=== PATIENT | female | born 1990 | race Caucasian/White ===

== ENCOUNTER 2016-11-22 14:03 | Emergency (ER) | payer OTHER ==
[~2016-11-22] VITALS: Ht 172.7 cm; Wt 147.4 kg
[2016-11-22] MEDS ORDERED: TYLE500T78 PO (14:18)
[2016-11-22] MEDS ORDERED: prenatal vitamin (14:18)
[2016-11-22] MEDS ORDERED: NS 1,000 ML IV ONE (14:30)
[2016-11-22] MEDS ORDERED: PROMETHAZINE INJ 25 MG/ML VIAL (J2550) IV ONE (14:30)
[2016-11-22 15:14] LABS: BASO % 0.3 % (0.0-1.0); EOS % 0.3 % (0.0-3.0); LARGE UNSTAINED CELL % 0.4 % (0.0-4.0); LYMPH # 0.3 K/mm3 (1.5-6.5); LYMPH % 2.8 % (24.0-44.0); MEAN CORPUSCULAR HEMOGLOBIN 26.2 pg (27.0-33.0); MEAN CORPUSCULAR HGB CONC 33.6 g/dl (32.0-36.5); MEAN CORPUSCULAR VOLUME 78.1 fl (80.0-96.0); MONO # 0.2 K/mm3 (0.0-0.8); NEUTROPHILS % 94.2 % (36.0-66.0); PLATELET COUNT, AUTOMATED 252 k/mm3 (150-450); WHITE BLOOD COUNT 9.5 K/mm3 (4.0-10.0)
[2016-11-22 15:44] LABS: ANION GAP 11 MEQ/L (8-16); BLOOD UREA NITROGEN 11 MG/DL (7-18); CALCIUM LEVEL 8.8 MG/DL (8.5-10.1); CARBON DIOXIDE LEVEL 23 MEQ/L (21-32); CHLORIDE LEVEL 106 MEQ/L (98-107); CREATININE FOR GFR 0.64 MG/DL (0.55-1.02); GLOMERULAR FILTRATION RATE > 60.0 (>60); GLUCOSE, FASTING 104 MG/DL (70-105); HCG, SERUM QUANTITATIVE 22613 MIU/ML; POTASSIUM SERUM 3.7 MEQ/L (3.5-5.1); SODIUM LEVEL 140 MEQ/L (136-145)
[2016-11-22] MEDS ORDERED: NS 500 ML IV ONE (17:00)
[2016-11-22] MEDS ORDERED: PROM50TA2 PO (17:37)
[2016-11-22 17:40] VITALS: BP 138/70
== END 2016-11-22 18:03 | disposition home or self-care (01) ==
LOC: M ED 15:12
DX: O99.89 Other specified diseases and conditions complicating pregnancy, childbirth and the puerperium (principal); A09 Infectious gastroenteritis and colitis, unspecified; E86.0 Dehydration; Z20.9 Contact with and (suspected) exposure to unspecified communicable disease; Z87.891 Personal history of nicotine dependence; Z79.899 Other long term (current) drug therapy; Z91.018 Allergy to other foods; Z3A.00 Weeks of gestation of pregnancy not specified

== ENCOUNTER 2017-02-22 21:30 | Emergency (ER) | payer OTHER ==
[~2017-02-22] VITALS: Ht 170.2 cm; Wt 142.0 kg
[~2017-02-22 21:30] MED LIST: PROM50TA2 PO; TYLE500T78 PO; prenatal vitamin
[2017-02-22] MEDS ORDERED: ZICAGEL2 (21:37)
[2017-02-22] MEDS ORDERED: HYDR1CR EXT (22:42)
[2017-02-22 22:44] VITALS: BP 132/68
== END 2017-02-22 22:45 | disposition home or self-care (01) ==
LOC: M ED 21:49
DX: L50.9 Urticaria, unspecified (principal); Z79.899 Other long term (current) drug therapy; Z91.018 Allergy to other foods; Z3A.00 Weeks of gestation of pregnancy not specified

== ENCOUNTER 2017-07-04 07:04 | Inpatient (IN) | payer OTHER ==
--- NOTE | 2017-06-29 03:43 | HPE ---
DATE OF ADMISSION: 07/04/2017 This lady is a 25-year-old 3, para 3 who is booked for an elective repeat section, bilateral tubal ligation on 07/04/2017. Her past history is in 2010 at 37 weeks spontaneous vaginal delivery twins, vertex, vertex, male, female, 5 pounds 14 ounces, 6 pounds, 2 ounces. 2015 at 42 weeks section for distress, female weighing 7 pounds, unknown ounces, intolerant of labor, had a knot in the cord after induction of labor at 42 weeks. The rest of the history is unremarkable. She has risk factors of having a body mass index (BMI) of 50. She had a previous section and has had an uneventful antepartum course. Her lab values show that she is O negative, HIV negative, hepatitis negative, RPR negative, rubella immune. Varicella immune. Urine had mixed tee. Gonorrhea and chlamydia are negative. 1-hour glucose was 119. Group B Streptococcus (GBS) status is unknown at the present time. She has had a total weight gain of 16 pounds. On examination today, symphysis fundus height is 40, vertex presenting. heart is 144 beats per minute. No contractions are noted. She is normocephalic, atraumatic. Neck full range of motion. Pupils equal and reactive to light. Chest is clear bilaterally to bases. No wheezes or rhonchi. Distal pulses are symmetric. Abdomen is soft. Incisional scar is noted. The patient is presently taking care of the incisional site prepping for her repeat section. She has no rashes, lesions or pruritus. No arthralgia or myalgia. No complaints of cough, wheezes, shortness of breath or dyspnea on exertion. She has allergy to coconut. She has no chest pain, not bruising, not bleeding. Neurologically complete. No incontinency, urgency or frequency. No nausea, vomiting, diarrhea or constipation. No endocrine issues. No diabetic issues. No abnormal Pap smears. Past medical history is unremarkable. Past surgical history is previous section. Family history is noncontributory. She does not smoke, drink, abuse drugs. She is . No domestic violence. Her blood pressure today was 128/67, respirations are 20. She weighs 317 pounds. We discussed repeat section and bilateral tubal ligation by Dawnaie clip. We discussed the risks and benefits of section including hemorrhage, infection, perforation, , reoperation, remote possibility of blood transfusion, remote possibility of hysterectomy, remote possibility of laceration and remote possibility of intensive care unit (NICU) admission for the fetus. We also discussed the tubal ligation, the risk factor of failure rate of less than 1% which we have an intrauterine or an ectopic and post tubal ligation syndrome. After expressing understanding of all the risks and benefits, she signed and witnessed the consent form. She has had her preoperative assessment and is booked for 07/04/2017. After answering all questions, the patient left for evaluation of her preop on 07/04/2017.
[~2017-07-04] VITALS: Ht 170.2 cm; Wt 144.0 kg
[2017-07-04] VITALS (7 sets, daily range): BP systolic 115–134; BP diastolic 55–71
[~2017-07-04 07:04] MED LIST changes: +HYDR1CRE2 EXT; +PRENTAB9 PO; -PROM50TA2 PO; +PROM50TA4 PO; +ZICAGEL2
[2017-07-04] MEDS ORDERED: ACETAMINOPHEN 650 MG SUPP PR ONE (08:00)
[2017-07-04] MEDS ORDERED: FAMO20TA PO (08:00)
[2017-07-04] MEDS ORDERED: LR 1,000 ML IV ONE (08:00)
[2017-07-04] MEDS ORDERED: AZITHROMYCIN INJ 500 MG, VIAL MATE ADAPTER 1 EACH in D5W 250 ML IV ONE (08:00)
[2017-07-04] MEDS ORDERED: BUPIVACAINE HCL 0.25% 10 ML VIAL SC ONE (08:00)
[2017-07-04 08:05] LABS: MEAN CORPUSCULAR HEMOGLOBIN 26.3 pg (27.0-33.0); MEAN CORPUSCULAR VOLUME 79.5 fl (80.0-96.0); PLATELET COUNT, AUTOMATED 176 10^3/uL (150-450); WHITE BLOOD COUNT 8.1 10^3/uL (4.0-10.0)
[2017-07-04] MEDS: PRENATAL VITAMINS CHEWABLE TABLET PO SCH (09:00)
[2017-07-04] MEDS ORDERED: LR 1,000 ML IV SCH ×2 (09:00→13:30)
[2017-07-04] MEDS ORDERED: BICITRA 30ML SOLN UDC PO ONE (09:15)
[2017-07-04] MEDS ORDERED: METOCLOPRAMIDE INJ 10MG/2ML VIAL (J2765) IV PRN ×2 (11:35→13:30)
[2017-07-04] MEDS ORDERED: NALOXONE INJ 0.4 MG/1 ML VIAL (J2310) IV PRN ×2 (11:35)
[2017-07-04] MEDS ORDERED: ONDANSETRON 4MG/2ML VIAL (J2405) IV PRN ×2 (11:35→13:30)
[2017-07-04] MEDS ORDERED: KETOROLAC 60 MG/2 ML VIAL (J1885) As Ordered ONE (12:05)
[2017-07-04] MEDS ORDERED: ONDANSETRON 4MG/2ML VIAL (J2405) As Ordered ONE (12:05)
[2017-07-04] MEDS ORDERED: MORPHINE PRES-FREE INJ 10 MG/10 ML VIAL (J2274) As Ordered ONE (12:05)
[2017-07-04] MEDS ORDERED: OXYTOCIN INJ 10 UNITS/ML VIAL (J2590) As Ordered ONE (12:05)
[2017-07-04] MEDS ORDERED: PHENYLephrine HCL 500 MCG/5 ML (100MCG/ML) SYRINGE (J2370) As Ordered ONE (12:07)
[2017-07-04 12:15] LABS: CORD GAS ABE A -3.7; CORD GAS ABE V -1.4; CORD GAS HCO3 A 23.2 MEQ/L; CORD GAS HCO3 V 23.1 MEQ/L; CORD GAS O2 SAT A 22.4 %; CORD GAS O2 SAT V 66.6 %; CORD GAS PCO2 A 49.5 mmHg; CORD GAS PCO2 V 38.1 mmHg; CORD GAS PH A 7.289 UNITS; CORD GAS PH V 7.4 UNITS; CORD GAS PO2 V 26.4 mmHg; CORD GAS SBC A 19.8 MEQ/L; CORD GAS SBC V 22.6 MEQ/L; CORD GAS TCO2 A 24.7 MEQ/L; CORD GAS TCO2 V 24.2 MEQ/L
[2017-07-04] MEDS ORDERED: fentaNYL 100 MCG/2 ML INJECTION (J3010) IV PRN (13:30)
[2017-07-04] MEDS ORDERED: PERCOCET 5MG/325MG TAB PO PRN ×2 (13:30→14:00)
[2017-07-04] MEDS ORDERED: OXYTOCIN DRIP 30 UNITS in APPROPRIATE DILUENT 1 EA IV SCH (13:48)
[2017-07-04] MEDS: LR 1,000 ML IV SCH ×2 (13:48→21:48)
[2017-07-04] MEDS ORDERED: DOCUSATE SODIUM 100 MG CAP PO PRN (14:00)
[2017-07-04] MEDS ORDERED: MOM 30ML SUSPENSION UDC PO PRN (14:00)
[2017-07-04] MEDS ORDERED: RHOGAM 300 MCG (1500 IU) INJ (J2790) IM SCH (14:00)
[2017-07-04] MEDS ORDERED: MEASLES,MUMPS,RUBELLA VACCINE INJ (MMR-II) (90707) SC SCH (14:00)
[2017-07-04] MEDS ORDERED: OXYTOCIN INJ 10 UNITS/ML VIAL (J2590) IV ONE (14:00)
[2017-07-04] MEDS ORDERED: ANUSOL HC CREAM 30GM TOP PRN (14:00)
--- NOTE | 2017-07-04 15:19 | IPN ---
DATE: 07/04/2017 This and patient requested circumcision of their male . After discussing the risks and benefits of circumcision, the medical and nonmedical indications, the penile block and aftercare, answering all questions, expressed understanding of the penile block, aftercare and complications, signed and witnessed the consent form and we await the clearance by the brokerage purchase and sale clerk.
[2017-07-04] MEDS: NALBUPHINE HCL 10 MG/ML AMP (J2300) IV PRN (16:22)
[2017-07-04] MEDS: ENOXAPARIN 40 MG/0.4 ML SYRINGE (J1650) SC SCH (19:28)
[2017-07-04] MEDS: IBUPROFEN 800 MG TAB PO SCH (20:21)
[2017-07-05 02:27] VITALS: BP 123/70
[2017-07-05] MEDS: IBUPROFEN 800 MG TAB PO SCH ×3 (04:00→19:58)
[2017-07-05] MEDS: LR 1,000 ML IV SCH ×3 (05:25→21:48)
[2017-07-05 06:09] VITALS: BP 119/56
[2017-07-05] MEDS: NALBUPHINE HCL 10 MG/ML AMP (J2300) IV PRN (06:18)
[2017-07-05 07:05] LABS: MEAN CORPUSCULAR HEMOGLOBIN 26.5 pg (27.0-33.0); MEAN CORPUSCULAR HGB CONC 32.5 g/dl (32.0-36.5); MEAN CORPUSCULAR VOLUME 81.6 fl (80.0-96.0); PLATELET COUNT, AUTOMATED 179 10^3/uL (150-450); RED CELL DISTRIBUTION WIDTH 15.4 % (11.5-14.5); WHITE BLOOD COUNT 9.5 10^3/uL (4.0-10.0)
[2017-07-05] MEDS: PRENATAL VITAMINS CHEWABLE TABLET PO SCH (09:54)
[2017-07-05 10:00] VITALS: BP 124/56
--- NOTE | 2017-07-05 10:08 | IPN ---
DATE: This lady is a 26-year-old 3, now para 4 who had a repeat section and bilateral tubal ligation by Halie, delivered a live male infant 7 pounds 6 ounces 3340 grams, of 9 and 9 at one and five minutes, respectively. Arterial pH 7.28, base excess -3.7, venous pH 7.4, base excess -1.4. Her admitting hemoglobin was 10.5, hematocrit 31.8 and platelets were 176. day 1 hemoglobin 9.9, hematocrit 30.5 and platelets are 179. Her vital signs today: Blood pressure is 119/56, respirations 18, pulse 80, temperature 97.7. We discussed phlebitis, cystitis, mastitis, endometritis and cellulitis, diet, exercise pain management, perineal breast and wound care. Incentive spirometry is a must. Wearing her sequential is must. She is at high risk for deep venous thrombosis DVT and pulmonary embolus (PE), presently on Lovenox. The rest of the examination is unremarkable. She is normocephalic, atraumatic. Neck: Full range of motion. Pupils equal and reactive to light. Chest is clear bilaterally at the bases. No wheezes or rhonchi. No CVA tenderness. Distal pulses symmetric. No evidence of DVT, PE or superficial phlebitis. She is mobilizing nicely. Abdomen is soft wound VAC is in place and well applied. Four quadrant bowel sounds are noted. She has no rashes, lesions or pruritus. No arthralgia or myalgia. No complaints of cough, wheezes, shortness of breath or dyspnea on exertion. No chest pain. No bleeding. Neuro complete. No urgency, frequency. No nausea, vomiting, diarrhea or constipation. In summary we have a term gestation delivered a live male . We are encouraging her to do her deep breathing exercises, mobilizing as much as possible, increase her fluids. The patient will be on Lovenox while in the hospital and the use of her sequentials is imperative. The patient understands the risks of DVT, PE or superficial phlebitis and will comply. Anxious to go home. Possibility of discharge tomorrow.
[2017-07-05 13:56] VITALS: BP 129/65
[2017-07-05] MEDS: PERCOCET 5MG/325MG TAB PO PRN ×2 (16:26→22:09)
[2017-07-05 18:00] VITALS: BP 138/64
[2017-07-05] MEDS: ENOXAPARIN 40 MG/0.4 ML SYRINGE (J1650) SC SCH (18:05)
[2017-07-05 22:04] VITALS: BP 132/68
[2017-07-06] MEDS: PERCOCET 5MG/325MG TAB PO PRN ×2 (03:42→08:13)
[2017-07-06] MEDS: IBUPROFEN 800 MG TAB PO SCH ×2 (04:45→11:48)
[2017-07-06] MEDS: LR 1,000 ML IV SCH (05:48)
[2017-07-06 05:56] VITALS: BP 122/62
[2017-07-06] MEDS: PRENATAL VITAMINS CHEWABLE TABLET PO SCH (08:12)
[2017-07-06] MEDS ORDERED: ANUS2.5C2 TOP (09:53)
[2017-07-06] MEDS ORDERED: COLA100C5 PO (09:53)
[2017-07-06] MEDS ORDERED: MOTR200T44 PO (09:53)
[2017-07-06] MEDS ORDERED: PERCOCET PO (09:53)
--- NOTE | 2017-07-07 06:31 | DSES ---
DATE OF ADMISSION: 07/04/2017 DATE OF DISCHARGE: 07/06/2017 HISTORY: This lady is a 26-year-old 3, now para 4, had a repeat section, bilateral tubal ligation by Filshie clip. Delivered a live male in the brow presentation, 7 pounds 6 ounces, 3340 grams, scores of 9 and 9 at one and five minutes respectively. Arterial pH 7.28, base excess -3.7, venous pH 7.40, base excess -1.4. Her admitting hemoglobin 10.5, hematocrit 31.8 and platelets were 176. Discharge hemoglobin 9.9, hematocrit 30.5 and platelets are 179. Vital signs on discharge: Blood pressure 122/62, respirations 18, pulse 90, temperature 97.3. We discussed phlebitis, cystitis, mastitis, metritis and cellulitis, diet, exercise, pain management, perineal, breast and wound care. We specifically focused on her probe end which is on the abdomen and is protective against the incision, and counseled her regarding wait for the batteries to fail and then remove the probe end, as well the vacuum will eventually separate off. She expressed understanding of that and we did skilled nursing facility counselor her to put it in a double plastic bag before putting it in the trash and not to bring it back to the hospital or to the [facility]. The rest the examination is unremarkable. She is normocephalic, atraumatic. Neck full range of motion. Pupils equal and reactive to light. The chest is clear bilaterally bases. No wheezes or rhonchi. No costovertebral angle tenderness. Distal pulses symmetric. She was wearing her sequentials. No evidence of deep venous thrombosis (DVT), pulmonary embolism (PE) or superficial phlebitis. Uterus is two below. Lochia is moderate. Four quadrant bowel sounds are noted. No rashes, lesions or pruritus. No arthralgia, myalgia. No complaints of cough, wheezes, shortness of breath or dyspnea on exertion. No chest pain. Not bleeding. Neuro complete. No incontinence, urgency or frequency. No nausea, vomiting, diarrhea or constipation. No diabetic issues. She does not smoke, drink, abuse drugs. She is . There is no domestic violence. In summary, we have a term gestation for a repeat section, bilateral tubal ligation by Filshie clip. Medications were given on discharge, has a two-week incision check and six-week check. Discharged improved.
--- NOTE | 2017-07-10 22:22 | RO ---
DATE OF PROCEDURE: 07/04/2017 PREOPERATIVE DIAGNOSIS: Repeat section and satisfied parity. POSTOPERATIVE DIAGNOSIS: Repeat section, satisfied parity and brow presentation. OPERATION PROPOSED: Repeat section and bilateral tubal ligation by Filshie clip. OPERATION PERFORMED: Repeat section, bilateral tubal ligation by Filshie clip. SURGEON: Dr. Mirza Stewart PSYCHIATRY INSTRUCTOR: Dr. Travis Silva ANESTHESIA: Spinal plus local anesthetic for intraperitoneal procedures. ESTIMATED BLOOD LOSS: 250 mL. DESCRIPTION OF PROCEDURE: Under adequate anesthesia, prepped and draped in the supine position, the patient had her abdomen taped up because her body mass index (BMI) is greater than 50. Extensive scrubbing had been done of the incisional site preoperatively. Sequentials are on board. Adequate antibiotics 1 hour preoperatively were given. Acetaminophen suppository 1300 mg per rectum. With time-out performed, a transverse incision was made into the abdomen, passing through abdominal layers, securing hemostasis. Opening peritoneal cavity, bladder was reflected well down anteriorly, low transverse incision was made into the uterus, artificial rupture of membranes (AROM) draining clear liquor. Delivered live male infant weighing 3340 grams, 7 pounds 6 ounces, initially as brow presentation, converted to posterior. Cord times three, loose , scores of 9 and 9 at one and five minutes respectfully. Arterial and venous pH were performed. The placenta was manually removed. Three-vessels in the cord, membranes and tissues intact. The uterine cavity was swept clean. The uterus contracted well down on Pitocin. The lower segment was oversewn in the usual fashion in two layers, the first was continuous, second was imbricated. Reperitonealization was performed. With instrument and pad count correct, both tubes were visualized to the fimbriated end. We requested affirmation by the patient that she requested permanent sterilization. Bilateral tubal ligation by Filshie clip were performed. With instrument and pad count correct, we lavaged out the abdomen. We then closed the abdomen, running stitch for the peritoneum, same for the fascia, interrupted for subcu and Dexon to the skin. Marcaine 0.25%, 10 mL on the incisional site. We then placed a wound vacuum vacuum onto the incision site to have a continuous vacuum over the incisional site for prevention of infection. It was working well in the operating theater. The patient was then transported to the recovery room. Instrument and pad count and final check was noted to be normal, and the patient was doing well postoperatively. She is to be started on Lovenox 12 hours post incision as she has a BMI of over 50. Copy To: Kiet MCKEON
== END 2017-07-06 12:00 | disposition home or self-care (01) | DRG 765 ==
LOC: M LDI 07:04 → M OBS 14:46
PROVIDERS: ADMIT Obstetrics & Gynecology; ATTEND Obstetrics & Gynecology
PROC: 0UL70CZ Occlusion of Bilateral Fallopian Tubes with Extraluminal Device, Open Approach (ICD-10-PCS; 2017-07-04)
PROC: 10D00Z1 Extraction of Products of Conception, Low, Open Approach (ICD-10-PCS; principal; 2017-07-04 09:30)
PROC: 30233S1 Transfusion of Nonautologous Globulin into Peripheral Vein, Percutaneous Approach (ICD-10-PCS; 2017-07-05)
DX: O34.211 Maternal care for low transverse scar from previous cesarean delivery (principal); Z68.43 Body mass index [BMI] 50.0-59.9, adult; O99.214 Obesity complicating childbirth; Z30.2 Encounter for sterilization; O64.3XX0 Obstructed labor due to brow presentation, not applicable or unspecified; Z37.0 Single live birth; Z3A.38 38 weeks gestation of pregnancy